=== PATIENT | female | born 1980 | race Caucasian/White ===

== ENCOUNTER → 2021-01-19 | Outpatient (CLI) | payer BC ==
[2005-08-07 21:07] VITALS: TEMP 97.7
[~2021-01-19] MED LIST: PRENATAL VITAMI1 TA5 PO
== END ==
LOC: MC.RAD 13:26
DX: Z12.31 Encounter for screening mammogram for malignant neoplasm of breast (principal)

== ENCOUNTER → 2023-05-23 | Outpatient (CLI) | payer BC ==
[2005-08-07 21:07] VITALS: TEMP 97.7
== END ==
LOC: CANSCHCLI → MC.RAD 09:10
DX: Z12.31 Encounter for screening mammogram for malignant neoplasm of breast (principal)

== ENCOUNTER 2023-11-07 07:20 | Day surgery (SDC) | payer BC ==
[~2023-11-07] VITALS: Ht 172.7 cm; Wt 66.8 kg
[~2023-11-07 07:20] MED LIST changes: +LR 1,000 ML IV SCH
[2023-11-07] MEDS ORDERED: SYNTHROID0.05 MG/TA PO (07:34)
[2023-11-07] MEDS ORDERED: OCREVUS300 MG/10 IV (07:34)
[2023-11-07] MEDS ORDERED: IMITREX100 MG PO (07:35)
[2023-11-07] MEDS ORDERED: THE MEDICINE S200 M2 PO (07:35)
[2023-11-07] MEDS ORDERED: VITAMIN D31000 I1 PO (07:35)
[2023-11-07] MEDS ORDERED: OMEGA-3 1000 MG1 CAP PO (07:36)
[2023-11-07] MEDS ORDERED: NATURAL MAGNES200 MG PO (07:36)
[2023-11-07] MEDS ORDERED: VITAMIN B225 MG PO (07:36)
[2023-11-07] MEDS ORDERED: PROBIOTIC ACID1 EAC3 PO (07:37)
[2023-11-07 07:46] VITALS: BP 109/66; PULSE 60; TEMP 98.4
--- NOTE | 2023-11-07 08:00 | NUR ---
The patient ambulated back to [place] [address] independently using a steady gait and appeared to tolerate the activity well. Vital signs obtained. Consent signed. 20G IV started in left hand with one stick, LR infusing without difficulty. Assessment completed. Home medications reconcilled. Call light is within reach. at bedside. Warm blanket provided. Denies any further needs.
[2023-11-07] MEDS ORDERED: Ondansetron 4 MG/2 ML VIAL ONE (08:18)
[2023-11-07] MEDS ORDERED: Lidocaine PF 2% (20 MG/ML) 5 ML VIAL ONE (08:18)
[2023-11-07] MEDS ORDERED: dexAMETHasone 10 MG/ML VIAL ONE (08:18)
[2023-11-07] MEDS ORDERED: fentaNYL 50 MCG/ML 2 ML VIAL ONE (08:19)
[2023-11-07] MEDS ORDERED: hydrALAZINE 20 MG/ML 1 ML VIAL IV PRN (08:30)
[2023-11-07] MEDS ORDERED: Ondansetron 4 MG/2 ML VIAL IV PRN ×2 (08:30→09:00)
[2023-11-07] MEDS ORDERED: Ketorolac 30 MG/ML VIAL IV PRN (08:30)
[2023-11-07] MEDS ORDERED: fentaNYL 50 MCG/ML 2 ML VIAL IV PRN (08:30)
[2023-11-07] MEDS ORDERED: Meperidine 50 MG/ML 1 ML VIAL IV PRN (08:30)
[2023-11-07] MEDS ORDERED: HYDROmorphone 2 MG/1 ML VIAL IV PRN (08:30)
[2023-11-07] MEDS ORDERED: Morphine 4 MG/ML VIAL IV PRN (09:00)
[2023-11-07] MEDS ORDERED: Naloxone 0.4 MG/ML VIAL IV PRN (09:00)
[2023-11-07] MEDS ORDERED: oxyCODONE 5 MG TAB PO PRN ×2 (09:00)
[2023-11-07] MEDS ORDERED: CEPHALEXIN500 M1 PO (09:00)
[2023-11-07] MEDS ORDERED: NORCO 325 MG-51 TAB PO (09:01)
[2023-11-07] MEDS ORDERED: Lidocaine 1% w EPI (1:100,000) 20 ML Multi-Dose VIAL IJ ONE (09:06)
[2023-11-07] MEDS ORDERED: EPINEPHrine 1 MG/1 ML Ampule IR ONE (09:09)
[2023-11-07] MEDS ORDERED: dexAMETHasone 4 MG/ML VIAL IJ ONE (09:11)
[2023-11-07] MEDS ORDERED: Acetaminophen 500 MG TAB PO SCH (09:52)
[2023-11-07 10:20] VITALS: BP 113/68; PULSE 63; TEMP 98.8
[2023-11-07 10:35] VITALS: BP 120/74; PULSE 72
[2023-11-07 10:38] VITALS: TEMP 97.7
[2023-11-07 10:50] VITALS: BP 109/63; PULSE 60
[2023-11-07 11:05] VITALS: BP 108/65; PULSE 64
[2023-11-07] MEDS ORDERED: Ibuprofen 800 MG TAB PO SCH (12:52)
--- NOTE | 2023-11-07 17:45 | NUR ---
[id number]: PT TO [facility] [place] [facility] FROM PACU S/P LEFT KNEE SCOPE A&O, PLACED ON MONITOR, VSS ON RA RECEIVED REPORT AND ASSUMED CARE OF PT FROM ROSIBEL ROBBINS ICE/ELEVATION TO L KNEE, MATT WRAP DRSG CDI, DENIES PAIN. NVI DISTALLY FAMILY AT BEDSIDE PROVIDED FOOD/FLUIDS, TOLERATING WELL PT HAS REMAINED A&O, NAD, VSS ON RA, TOLERATING PO, IS WITHOUT SIGNIFICANT COMPLAINT, WITH STEADY GAIT THRU OUT STAY IV D/C'D. D/C INSTRUCTIONS, FOLLOW UP REVIEWED AND HANDED TO PT. ALL QUESTIONS AND CONCERNS ADDRESSED TO PT SATISFACTION. TAKEN TO EXIT VIA W/C WITH ALL BELONGINGS AND PAPERWORK IN HAND, ASSISTED INTO PASSENGER SEAT OF POV. FAMILY TO DRIVE HOME.
== END 2023-11-07 11:15 | disposition home or self-care (01) ==
LOC: SDCO 07:20
DX: S83.242A Other tear of medial meniscus, current injury, left knee, initial encounter (principal); S83.282A Other tear of lateral meniscus, current injury, left knee, initial encounter; M94.8X6 Other specified disorders of cartilage, lower leg
CPT/HCPCS: J0171; J0665; J0690; J1100; J1885; J2405; J2704; J3010; J7120